=== PATIENT | male | born 1955 | race Caucasian/White ===

== ENCOUNTER 2019-08-06 11:40 | Inpatient (IN) ==
[2019-08-06] MEDS ORDERED: ONDANSETRON 4 MG/2 ML VIAL IV PRN (15:29)
[2019-08-06] MEDS ORDERED: guaiFENesin/DM ER 600-30 MG TABLET PO PRN (15:29)
[2019-08-06] MEDS ORDERED: ACETAMINOPHEN 325 MG TABLET PO PRN (15:29)
[2019-08-06] MEDS ORDERED: FLUTICASONE 50 MCG NASAL SPRAY 16 GM BOTTLE BOTH NARES PRN (15:51)
[2019-08-06 16:09] LABS: Hematocrit 30.1 VOL% (42.0-52.0); Hemoglobin 10.2 GM/DL (14.0-18.0); Immature Granulocytes % 0.5 %; Immature Granulocytes Absolute 0.02 #; Lymphocytes # 0.3 10*3/uL (1.4-4.0); Lymphocytes % 7.3 % (21.2-54.2); Mean Corpuscular HGB Conc 33.9 GM/DL (32-36); Mean Platelet Volume 9.1 FL (9.6-12.0); Monocytes % 0.7 % (1.7-12.7); Neutrophils % 91.5 % (38.7-73.9); Platelet Count 158 T/CUMM (130-400); Red Blood Count 2.95 MC/CUMM (3.8-5.5); Red Cell Distribution Width 16.5 % (9.3-17.3); White Blood Count 4.1 T/CUMM (4-12)
[2019-08-06 16:20] LABS: INR 0.9; Partial Thromboplastin Time 30.8 SECS (20.8-36.0)
[2019-08-06 16:30] LABS: Albumin 3.2 G/DL (3.4-5.0); Bilirubin,Total 0.8 MG/DL (0.2-1.0); Calcium 8.4 MG/DL (8.5-10.1); Total Protein 6.3 G/DL (6.4-8.3)
[2019-08-06 16:43] LABS: Anisocytosis 1+; Lymphocytes 5 % (20-55); Macrocytosis 1+; Platelet Estimate Normal; Polychromasia Slight; Segmented Neutrophils 95 % (50-85); Total Cells Counted 100
[2019-08-06] MEDS: LEVOFLOXACIN INJ 750 MG in PREMIX 1 EACH IV SCH (17:02)
[2019-08-06] MEDS: FUROSEMIDE 40 MG/4 ML VIAL IV SCH (17:02)
[2019-08-06] MEDS: LORazepam 1 MG TABLET PO PRN (18:33)
[2019-08-06] MEDS ORDERED: MORPHINE 4 MG/1 ML VIAL IV ONE (20:24)
[2019-08-06] MEDS: CHOLECALCIFEROL 400 UNIT TABLET PO SCH (20:45)
[2019-08-06] MEDS: CALCIUM (CARBONATE) 600 MG TABLET PO SCH (20:45)
[2019-08-07] MEDS: LORazepam 1 MG TABLET PO PRN ×2 (04:02→14:12)
[2019-08-07] MEDS: oxyCODONE IR 5 MG TABLET PO PRN ×2 (04:02→13:10)
[2019-08-07 05:36] LABS: Hematocrit 28.3 VOL% (42.0-52.0); Hemoglobin 9.8 GM/DL (14.0-18.0); Immature Granulocytes % 0.4 %; Immature Granulocytes Absolute 0.02 #; Lymphocytes # 0.5 10*3/uL (1.4-4.0); Lymphocytes % 9.5 % (21.2-54.2); Mean Corpuscular HGB Conc 34.6 GM/DL (32-36); Mean Corpuscular Volume 102.5 FL (87-102); Mean Platelet Volume 9.3 FL (9.6-12.0); Monocytes % 7.3 % (1.7-12.7); Neutrophils % 82.8 % (38.7-73.9); Platelet Count 170 T/CUMM (130-400); Red Blood Count 2.76 MC/CUMM (3.8-5.5); Red Cell Distribution Width 16.7 % (9.3-17.3)
[2019-08-07 06:03] LABS: Calcium 8.3 MG/DL (8.5-10.1); Osmolality,Calculated 275.8 MOS/KG (273-304)
[2019-08-07] MEDS ORDERED: LOSARTAN 50 MG TABLET PO SCH (09:00)
[2019-08-07] MEDS: FUROSEMIDE 40 MG/4 ML VIAL IV SCH (09:21)
[2019-08-07] MEDS: PANTOPRAZOLE 40 MG TABLET PO SCH (09:21)
[2019-08-07] MEDS: CALCIUM (CARBONATE) 600 MG TABLET PO SCH ×2 (09:21→20:16)
[2019-08-07] MEDS: CHOLECALCIFEROL 400 UNIT TABLET PO SCH ×2 (09:21→20:16)
[2019-08-07] MEDS: SERTRALINE 50 MG TABLET PO SCH (09:21)
[2019-08-07 09:50] LABS: Eosinophils,Pleural Fluid 2 %; Lymphocytes,Pleural Fluid 4 %; Monocytes,Pleural Fluid 3 %; Neutrophils,Pleural Fluid 91 %
[2019-08-07 09:58] LABS: RBC,Pleural Fluid > 100000 T/CUMM
[2019-08-07] MEDS: ALBUTEROL/IPRATROPIUM 3 ML NEB RESP TX SCH ×2 (13:09→21:00)
[2019-08-07] MEDS ORDERED: SODIUM CHLORIDE 0.9% 1,000 ML IV ONE (14:30)
[2019-08-07] MEDS: LEVOFLOXACIN INJ 750 MG in PREMIX 1 EACH IV SCH (16:17)
[2019-08-08] MEDS: oxyCODONE IR 5 MG TABLET PO PRN ×4 (00:39→23:45)
[2019-08-08] MEDS: ALBUTEROL/IPRATROPIUM 3 ML NEB RESP TX SCH ×4 (01:20→19:37)
[2019-08-08 04:53] LABS: Basophils % 0.2 % (0.0-0.8); Eosinophils % 0.2 % (0.00-10.9); Hematocrit 27.4 VOL% (42.0-52.0); Hemoglobin 9.4 GM/DL (14.0-18.0); Immature Granulocytes % 0.5 %; Immature Granulocytes Absolute 0.02 #; Lymphocytes # 0.7 10*3/uL (1.4-4.0); Lymphocytes % 15.9 % (21.2-54.2); Mean Corpuscular HGB Conc 34.3 GM/DL (32-36); Mean Platelet Volume 9.5 FL (9.6-12.0); Monocytes % 9.1 % (1.7-12.7); Neutrophils % 74.1 % (38.7-73.9); Platelet Count 152 T/CUMM (130-400); Red Blood Count 2.66 MC/CUMM (3.8-5.5); Red Cell Distribution Width 16.9 % (9.3-17.3); White Blood Count 4.1 T/CUMM (4-12)
[2019-08-08 05:54] LABS: Folate 15.2 NG/ML (5.4-24.0)
[2019-08-08] MEDS: SERTRALINE 50 MG TABLET PO SCH (08:30)
[2019-08-08] MEDS: CHOLECALCIFEROL 400 UNIT TABLET PO SCH ×2 (08:30→20:00)
[2019-08-08] MEDS: PANTOPRAZOLE 40 MG TABLET PO SCH (08:30)
[2019-08-08] MEDS: CALCIUM (CARBONATE) 600 MG TABLET PO SCH ×2 (08:30→19:59)
[2019-08-08] MEDS ORDERED: CYANOCOBALAMIN 500 MCG TABLET PO SCH (09:00)
[2019-08-08] MEDS ORDERED: PHENOL 1.4% THROAT SPRAY 177 ML BOTTLE PO PRN (09:47)
[2019-08-08] MEDS: CYANOCOBALAMIN 1000 MCG/1 ML VIAL SUBCUT SCH (11:15)
[2019-08-08] MEDS: LORazepam 1 MG TABLET PO PRN ×2 (11:48→19:59)
[2019-08-08 15:47] LABS: Total Protein,Body Fluid 3.7 G/DL
[2019-08-08] MEDS: LEVOFLOXACIN INJ 750 MG in PREMIX 1 EACH IV SCH (16:02)
[2019-08-08 20:46] LABS: RBC,Pleural Fluid > 100000 T/CUMM
[2019-08-08 21:28] LABS: Lymphocytes,Pleural Fluid 18 %; Monocytes,Pleural Fluid 2 %; Neutrophils,Pleural Fluid 80 %
[2019-08-09] MEDS: ALBUTEROL/IPRATROPIUM 3 ML NEB RESP TX SCH ×2 (02:17→07:21)
[2019-08-09] MEDS: CALCIUM (CARBONATE) 600 MG TABLET PO SCH (08:45)
[2019-08-09] MEDS: CHOLECALCIFEROL 400 UNIT TABLET PO SCH (08:45)
[2019-08-09] MEDS: SERTRALINE 50 MG TABLET PO SCH (08:45)
[2019-08-09] MEDS: PANTOPRAZOLE 40 MG TABLET PO SCH (08:45)
[2019-08-09] MEDS: CYANOCOBALAMIN 1000 MCG/1 ML VIAL SUBCUT SCH (08:46)
[2019-08-09] MEDS: LORazepam 1 MG TABLET PO PRN (08:52)
[2019-08-09] MEDS: oxyCODONE IR 5 MG TABLET PO PRN (08:53)
[2019-08-09] MEDS ORDERED: LORazepam 1 MG TABLET PO PRN (09:05)
[2019-08-09 11:55] VITALS: BP 133/80
[2019-08-09] MEDS ORDERED: METOPROLOL TARTRATE 25 MG TABLET PO SCH (21:00)
[2019-08-10] MEDS ORDERED: LEVOTHYROXINE 50 MCG TABLET PO SCH (06:30)
== END 2019-08-09 12:43 | disposition home or self-care (01) | DRG 186 ==
LOC: N.4E → OBSVTOIN 14:20 → SUATTDRO 14:20
PROVIDERS: ADMIT Internal Medicine; ATTEND Internal Medicine

== ENCOUNTER 2019-08-11 09:45 | Inpatient (IN) ==
[2019-08-11 10:10] LABS: Basophils % 0.1 % (0.0-0.8); Eosinophils % 0.4 % (0.00-10.9); Hemoglobin 10.5 GM/DL (14.0-18.0); Immature Granulocytes % 0.6 %; Immature Granulocytes Absolute 0.04 #; Lymphocytes # 0.5 10*3/uL (1.4-4.0); Lymphocytes % 6.6 % (21.2-54.2); Mean Corpuscular Volume 102.4 FL (87-102); Mean Platelet Volume 9.3 FL (9.6-12.0); Monocytes % 8.1 % (1.7-12.7); Neutrophils % 84.2 % (38.7-73.9); Platelet Count 226 T/CUMM (130-400); Red Blood Count 2.93 MC/CUMM (3.8-5.5); White Blood Count 7.1 T/CUMM (4-12)
[2019-08-11 10:21] LABS: INR 0.9; PT Patient Result 9.7 SECS (9.6-12.2); Partial Thromboplastin Time 30.1 SECS (20.8-36.0)
[2019-08-11 10:41] LABS: Albumin 2.5 G/DL (3.4-5.0); Bilirubin,Total 0.5 MG/DL (0.2-1.0); Calcium 8.6 MG/DL (8.5-10.1); Osmolality,Calculated 269.7 MOS/KG (273-304)
[2019-08-11] MEDS ORDERED: VANCOMYCIN INJ 1,000 MG in SODIUM CHLORIDE 0.9% 250 ML IV STA (11:21)
[2019-08-11] MEDS ORDERED: MEROPENEM 500 MG in SODIUM CHLORIDE 0.9% 100 ML IV ONE (11:29)
[2019-08-11] MEDS ORDERED: FLUTICASONE 50 MCG NASAL SPRAY 16 GM BOTTLE BOTH NARES PRN (13:00)
[2019-08-11] MEDS ORDERED: guaiFENesin/DM ER 600-30 MG TABLET PO PRN (13:01)
[2019-08-11] MEDS ORDERED: ONDANSETRON 4 MG/2 ML VIAL IV PRN (13:01)
[2019-08-11] MEDS ORDERED: MAGNESIUM SULF RIDER 2 GM in PREMIX 1 EACH IV PRN (13:01)
[2019-08-11] MEDS ORDERED: MAGNESIUM SULF RIDER 4 GM in PREMIX 1 EACH IV PRN (13:01)
[2019-08-11] MEDS ORDERED: SODIUM CHLORIDE 0.9% 1,000 ML IV SCH (13:30)
[2019-08-11] MEDS ORDERED: MEROPENEM 500 MG in SODIUM CHLORIDE 0.9% 100 ML IV SCH (13:30)
[2019-08-11] MEDS ORDERED: diphenhydrAMINE 50 MG/1 ML VIAL IV ONE (15:07)
[2019-08-11] MEDS ORDERED: VANCOMYCIN INJ 500 MG in SODIUM CHLORIDE 0.9% 100 ML IV ONE (16:00)
[2019-08-11] MEDS: LORazepam 1 MG TABLET PO PRN ×2 (17:29→22:40)
[2019-08-11] MEDS: CALCIUM (CARBONATE) 600 MG TABLET PO SCH (21:02)
[2019-08-11] MEDS: MORPHINE 4 MG/1 ML VIAL IV PRN (21:02)
[2019-08-11] MEDS: CHOLECALCIFEROL 400 UNIT TABLET PO SCH (21:02)
[2019-08-11] MEDS: MEROPENEM 500 MG in SODIUM CHLORIDE 0.9% 100 ML IV SCH (21:03)
[2019-08-12] MEDS: MORPHINE 4 MG/1 ML VIAL IV PRN ×3 (01:38→17:46)
[2019-08-12] MEDS: MEROPENEM 500 MG in SODIUM CHLORIDE 0.9% 100 ML IV SCH ×4 (02:47→20:48)
[2019-08-12 05:04] LABS: Eosinophils % 0.2 % (0.00-10.9); Hematocrit 31.5 VOL% (42.0-52.0); Hemoglobin 10.5 GM/DL (14.0-18.0); Immature Granulocytes % 0.6 %; Immature Granulocytes Absolute 0.04 #; Lymphocytes # 0.5 10*3/uL (1.4-4.0); Lymphocytes % 8.6 % (21.2-54.2); Mean Corpuscular HGB Conc 33.3 GM/DL (32-36); Mean Platelet Volume 9.2 FL (9.6-12.0); Monocytes % 10.6 % (1.7-12.7); Platelet Count 192 T/CUMM (130-400); Red Blood Count 3.03 MC/CUMM (3.8-5.5); White Blood Count 6.3 T/CUMM (4-12)
[2019-08-12 05:27] LABS: Calcium 8.4 MG/DL (8.5-10.1); Osmolality,Calculated 268.7 MOS/KG (273-304)
[2019-08-12] MEDS: LEVOTHYROXINE 50 MCG TABLET PO SCH (05:40)
[2019-08-12] MEDS: LORazepam 1 MG TABLET PO PRN (05:40)
[2019-08-12] MEDS: CHOLECALCIFEROL 400 UNIT TABLET PO SCH ×2 (09:41→20:49)
[2019-08-12] MEDS: BISACODYL 5 MG TABLET PO SCH (09:41)
[2019-08-12] MEDS: PANTOPRAZOLE 40 MG TABLET PO SCH (09:41)
[2019-08-12] MEDS: SERTRALINE 50 MG TABLET PO SCH (09:41)
[2019-08-12] MEDS: CALCIUM (CARBONATE) 600 MG TABLET PO SCH ×2 (09:41→20:49)
[2019-08-12] MEDS: VANCOMYCIN INJ 1,500 MG in SODIUM CHLORIDE 0.9% 500 ML IV SCH (10:30)
[2019-08-12] MEDS ORDERED: FUROSEMIDE 40 MG/4 ML VIAL IV ONE (15:34)
[2019-08-12] MEDS: predniSONE 20 MG TABLET PO SCH (17:31)
[2019-08-12] MEDS: oxyCODONE IR 5 MG TABLET PO PRN (21:39)
[2019-08-13] MEDS: MEROPENEM 500 MG in SODIUM CHLORIDE 0.9% 100 ML IV SCH ×4 (03:29→20:35)
[2019-08-13] MEDS: VANCOMYCIN INJ 1,500 MG in SODIUM CHLORIDE 0.9% 500 ML IV SCH ×2 (04:18→22:51)
[2019-08-13 05:14] LABS: Hemoglobin 9.9 GM/DL (14.0-18.0); Immature Granulocytes Absolute 0.05 #; Lymphocytes # 0.4 10*3/uL (1.4-4.0); Lymphocytes % 7.9 % (21.2-54.2); Mean Corpuscular HGB Conc 34.1 GM/DL (32-36); Mean Corpuscular Volume 102.8 FL (87-102); Mean Platelet Volume 9.4 FL (9.6-12.0); Monocytes % 4.4 % (1.7-12.7); Neutrophils % 86.7 % (38.7-73.9); Platelet Count 168 T/CUMM (130-400); Red Blood Count 2.82 MC/CUMM (3.8-5.5); Red Cell Distribution Width 15.7 % (9.3-17.3); White Blood Count 4.8 T/CUMM (4-12)
[2019-08-13 05:30] LABS: Calcium 8.1 MG/DL (8.5-10.1); Osmolality,Calculated 271.5 MOS/KG (273-304)
[2019-08-13] MEDS: LEVOTHYROXINE 50 MCG TABLET PO SCH (06:37)
[2019-08-13] MEDS: CHOLECALCIFEROL 400 UNIT TABLET PO SCH ×2 (08:59→20:35)
[2019-08-13] MEDS: BISACODYL 5 MG TABLET PO SCH (09:00)
[2019-08-13] MEDS: predniSONE 20 MG TABLET PO SCH (09:00)
[2019-08-13] MEDS: PANTOPRAZOLE 40 MG TABLET PO SCH (09:00)
[2019-08-13] MEDS: SERTRALINE 50 MG TABLET PO SCH (09:00)
[2019-08-13] MEDS: CALCIUM (CARBONATE) 600 MG TABLET PO SCH ×2 (09:00→20:35)
[2019-08-13] MEDS ORDERED: DEXAMETHASONE 10 MG/1 ML VIAL IV ONE (09:02)
[2019-08-13] MEDS: MORPHINE 4 MG/1 ML VIAL IV PRN (09:17)
[2019-08-13] MEDS ORDERED: GRANISETRON 1 MG/1 ML VIAL IV SCH (09:30)
[2019-08-13] MEDS ORDERED: GEMCITABINE IV ONE (10:00)
[2019-08-13] MEDS ORDERED: SODIUM CHLORIDE 0.9% IV ONE (10:00)
[2019-08-13] MEDS ORDERED: GRANISETRON 1 MG/1 ML VIAL IV ONE (12:00)
[2019-08-13] MEDS: LORazepam 1 MG TABLET PO PRN (18:27)
[2019-08-13] MEDS: oxyCODONE IR 5 MG TABLET PO PRN (20:36)
[2019-08-14] MEDS: LORazepam 1 MG TABLET PO PRN (02:53)
[2019-08-14] MEDS: oxyCODONE IR 5 MG TABLET PO PRN ×3 (02:54→23:46)
[2019-08-14] MEDS: MEROPENEM 500 MG in SODIUM CHLORIDE 0.9% 100 ML IV SCH ×4 (03:50→21:12)
[2019-08-14 06:06] LABS: Basophils % 0.1 % (0.0-0.8); Hematocrit 31.9 VOL% (42.0-52.0); Hemoglobin 10.6 GM/DL (14.0-18.0); Immature Granulocytes % 0.7 %; Immature Granulocytes Absolute 0.06 #; Lymphocytes # 0.6 10*3/uL (1.4-4.0); Lymphocytes % 6.7 % (21.2-54.2); Mean Corpuscular HGB Conc 33.2 GM/DL (32-36); Mean Corpuscular Volume 103.6 FL (87-102); Monocytes % 6.1 % (1.7-12.7); Neutrophils % 86.4 % (38.7-73.9); Platelet Count 198 T/CUMM (130-400); Red Blood Count 3.08 MC/CUMM (3.8-5.5); Red Cell Distribution Width 15.8 % (9.3-17.3); White Blood Count 8.9 T/CUMM (4-12)
[2019-08-14 06:14] LABS: INR 0.9; PT Patient Result 9.5 SECS (9.6-12.2)
[2019-08-14 06:20] LABS: Calcium 8.7 MG/DL (8.5-10.1); Osmolality,Calculated 270.7 MOS/KG (273-304)
[2019-08-14] MEDS: LEVOTHYROXINE 50 MCG TABLET PO SCH (07:09)
[2019-08-14] MEDS ORDERED: DIAZEPAM 5 MG TABLET PO ONE (08:42)
[2019-08-14] MEDS ORDERED: MIDAZOLAM 2 MG/2 ML VIAL IV ONE (10:00)
[2019-08-14] MEDS ORDERED: fentaNYL 100 MCG/2 ML VIAL IV ONE (10:00)
[2019-08-14] MEDS ORDERED: fentaNYL 100 MCG/2 ML VIAL ONE (10:44)
[2019-08-14] MEDS ORDERED: MIDAZOLAM 2 MG/2 ML VIAL ONE (10:45)
[2019-08-14] MEDS ORDERED: TISSUE ADHESIVE 1 EACH APPLICATOR TOP ONE (11:18)
[2019-08-14] MEDS: MORPHINE 4 MG/1 ML VIAL IV PRN ×3 (12:46→21:08)
[2019-08-14] MEDS: BISACODYL 5 MG TABLET PO SCH (12:48)
[2019-08-14] MEDS: predniSONE 20 MG TABLET PO SCH (12:49)
[2019-08-14] MEDS: SERTRALINE 50 MG TABLET PO SCH (12:49)
[2019-08-14] MEDS: CALCIUM (CARBONATE) 600 MG TABLET PO SCH ×2 (12:50→21:11)
[2019-08-14] MEDS: CHOLECALCIFEROL 400 UNIT TABLET PO SCH ×2 (12:50→21:11)
[2019-08-14] MEDS: PANTOPRAZOLE 40 MG TABLET PO SCH (12:50)
[2019-08-15] MEDS: MORPHINE 4 MG/1 ML VIAL IV PRN ×4 (02:07→21:58)
[2019-08-15] MEDS: MEROPENEM 500 MG in SODIUM CHLORIDE 0.9% 100 ML IV SCH ×4 (02:10→20:31)
[2019-08-15 04:16] LABS: Basophils % 0.1 % (0.0-0.8); Hematocrit 31.9 VOL% (42.0-52.0); Hemoglobin 11.1 GM/DL (14.0-18.0); Immature Granulocytes % 0.7 %; Immature Granulocytes Absolute 0.08 #; Lymphocytes # 0.4 10*3/uL (1.4-4.0); Lymphocytes % 3.5 % (21.2-54.2); Mean Corpuscular HGB Conc 34.8 GM/DL (32-36); Mean Corpuscular Volume 101.6 FL (87-102); Mean Platelet Volume 9.4 FL (9.6-12.0); Monocytes % 2.1 % (1.7-12.7); Neutrophils % 93.6 % (38.7-73.9); Platelet Count 196 T/CUMM (130-400); Red Blood Count 3.14 MC/CUMM (3.8-5.5); Red Cell Distribution Width 15.9 % (9.3-17.3); White Blood Count 12.2 T/CUMM (4-12)
[2019-08-15 04:44] LABS: Band Neutrophils 1 % (0-10); Lymphocytes 4 % (20-55); Segmented Neutrophils 95 % (50-85); Total Cells Counted 100
[2019-08-15 04:45] LABS: Anisocytosis 1+; Ovalocytes 1+; Platelet Estimate Normal
[2019-08-15 04:46] LABS: Calcium 8.1 MG/DL (8.5-10.1); Osmolality,Calculated 270.1 MOS/KG (273-304)
[2019-08-15] MEDS: LEVOTHYROXINE 50 MCG TABLET PO SCH (06:16)
[2019-08-15] MEDS: BISACODYL 5 MG TABLET PO SCH (09:43)
[2019-08-15] MEDS: CALCIUM (CARBONATE) 600 MG TABLET PO SCH ×2 (09:43→20:31)
[2019-08-15] MEDS: CHOLECALCIFEROL 400 UNIT TABLET PO SCH ×2 (09:44→20:31)
[2019-08-15] MEDS: PANTOPRAZOLE 40 MG TABLET PO SCH (09:44)
[2019-08-15] MEDS: predniSONE 20 MG TABLET PO SCH (09:44)
[2019-08-15] MEDS: SERTRALINE 50 MG TABLET PO SCH (09:44)
[2019-08-15] MEDS: oxyCODONE IR 5 MG TABLET PO PRN ×2 (09:45→19:19)
[2019-08-15] MEDS: LORazepam 1 MG TABLET PO PRN (16:33)
[2019-08-16] MEDS: MEROPENEM 500 MG in SODIUM CHLORIDE 0.9% 100 ML IV SCH ×4 (02:50→20:43)
[2019-08-16 05:34] LABS: Basophils % 0.1 % (0.0-0.8); Hematocrit 30.1 VOL% (42.0-52.0); Hemoglobin 10.1 GM/DL (14.0-18.0); Immature Granulocytes % 1.1 %; Immature Granulocytes Absolute 0.16 #; Lymphocytes # 0.5 10*3/uL (1.4-4.0); Lymphocytes % 3.5 % (21.2-54.2); Mean Corpuscular HGB Conc 33.6 GM/DL (32-36); Mean Corpuscular Volume 103.4 FL (87-102); Mean Platelet Volume 9.3 FL (9.6-12.0); Monocytes % 0.5 % (1.7-12.7); Neutrophils % 94.8 % (38.7-73.9); Platelet Count 182 T/CUMM (130-400); Red Blood Count 2.91 MC/CUMM (3.8-5.5); Red Cell Distribution Width 15.5 % (9.3-17.3); White Blood Count 14.7 T/CUMM (4-12)
[2019-08-16] MEDS: LEVOTHYROXINE 50 MCG TABLET PO SCH (05:43)
[2019-08-16 05:49] LABS: Calcium 8.3 MG/DL (8.5-10.1); Osmolality,Calculated 274.2 MOS/KG (273-304)
[2019-08-16 06:05] LABS: Lymphocytes 2 % (20-55); Segmented Neutrophils 97 % (50-85); Total Cells Counted 100
[2019-08-16 06:06] LABS: Hypochromasia 1+; Ovalocytes Slight; Platelet Estimate Adequate
[2019-08-16] MEDS ORDERED: SODIUM CHLORIDE 0.9% 1,000 ML IV SCH (08:00)
[2019-08-16] MEDS ORDERED: SODIUM CHLORIDE 0.9% 500 ML IV SCH (08:45)
[2019-08-16] MEDS: predniSONE 20 MG TABLET PO SCH (09:11)
[2019-08-16] MEDS: SERTRALINE 50 MG TABLET PO SCH (09:11)
[2019-08-16] MEDS: BISACODYL 5 MG TABLET PO SCH (09:11)
[2019-08-16] MEDS: CHOLECALCIFEROL 400 UNIT TABLET PO SCH ×2 (09:11→20:43)
[2019-08-16] MEDS: CALCIUM (CARBONATE) 600 MG TABLET PO SCH ×2 (09:11→20:43)
[2019-08-16] MEDS: PANTOPRAZOLE 40 MG TABLET PO SCH (09:11)
[2019-08-16] MEDS: oxyCODONE IR 5 MG TABLET PO PRN ×3 (09:26→22:29)
[2019-08-16] MEDS: MORPHINE 4 MG/1 ML VIAL IV PRN (17:12)
[2019-08-16] MEDS: LORazepam 1 MG TABLET PO PRN (20:43)
[2019-08-17] MEDS: MORPHINE 4 MG/1 ML VIAL IV PRN ×3 (03:03→20:44)
[2019-08-17] MEDS: MEROPENEM 500 MG in SODIUM CHLORIDE 0.9% 100 ML IV SCH ×4 (03:55→20:52)
[2019-08-17 05:03] LABS: Basophils % 0.1 % (0.0-0.8); Hematocrit 27.4 VOL% (42.0-52.0); Hemoglobin 9.2 GM/DL (14.0-18.0); Immature Granulocytes % 1.2 %; Immature Granulocytes Absolute 0.13 #; Lymphocytes # 0.6 10*3/uL (1.4-4.0); Lymphocytes % 5.6 % (21.2-54.2); Mean Corpuscular HGB Conc 33.6 GM/DL (32-36); Mean Platelet Volume 9.6 FL (9.6-12.0); Monocytes % 0.7 % (1.7-12.7); Neutrophils % 92.4 % (38.7-73.9); Platelet Count 158 T/CUMM (130-400); Red Blood Count 2.61 MC/CUMM (3.8-5.5); Red Cell Distribution Width 15.3 % (9.3-17.3); White Blood Count 10.5 T/CUMM (4-12)
[2019-08-17 05:42] LABS: Band Neutrophils 9 % (0-10); Lymphocytes 2 % (20-55); Segmented Neutrophils 89 % (50-85); Total Cells Counted 100
[2019-08-17 05:43] LABS: Macrocytosis Slight; Ovalocytes Slight; Platelet Estimate Adequate
[2019-08-17 05:45] LABS: Calcium 8.5 MG/DL (8.5-10.1); Osmolality,Calculated 269.5 MOS/KG (273-304)
[2019-08-17] MEDS: LORazepam 1 MG TABLET PO PRN ×3 (07:27→20:43)
[2019-08-17] MEDS: LEVOTHYROXINE 50 MCG TABLET PO SCH (07:28)
[2019-08-17] MEDS: PANTOPRAZOLE 40 MG TABLET PO SCH (08:55)
[2019-08-17] MEDS: CALCIUM (CARBONATE) 600 MG TABLET PO SCH ×2 (08:55→20:44)
[2019-08-17] MEDS: predniSONE 20 MG TABLET PO SCH (08:55)
[2019-08-17] MEDS: SERTRALINE 50 MG TABLET PO SCH (08:55)
[2019-08-17] MEDS: CHOLECALCIFEROL 400 UNIT TABLET PO SCH ×2 (08:55→20:49)
[2019-08-17] MEDS: BISACODYL 5 MG TABLET PO SCH (08:55)
[2019-08-17] MEDS: SODIUM CHLORIDE 0.9% 1,000 ML IV SCH (14:30)
[2019-08-17] MEDS: oxyCODONE IR 5 MG TABLET PO PRN (15:29)
[2019-08-17] MEDS ORDERED: ENOXAPARIN 30 MG/0.3 ML SYRINGE SUBCUT SCH (21:00)
[2019-08-18] MEDS: MEROPENEM 500 MG in SODIUM CHLORIDE 0.9% 100 ML IV SCH ×2 (02:45→08:36)
[2019-08-18] MEDS: LORazepam 1 MG TABLET PO PRN ×4 (04:01→22:39)
[2019-08-18] MEDS: oxyCODONE IR 5 MG TABLET PO PRN ×2 (04:01→17:49)
[2019-08-18] MEDS: LEVOTHYROXINE 50 MCG TABLET PO SCH (05:40)
[2019-08-18] MEDS: SODIUM CHLORIDE 0.9% 1,000 ML IV SCH ×2 (05:44→17:49)
[2019-08-18 05:51] LABS: Bilirubin,Total 0.8 MG/DL (0.2-1.0); Calcium 8.6 MG/DL (8.5-10.1); Osmolality,Calculated 273.8 MOS/KG (273-304); Total Protein 5.3 G/DL (6.4-8.3)
[2019-08-18] MEDS: predniSONE 20 MG TABLET PO SCH (08:37)
[2019-08-18] MEDS: PANTOPRAZOLE 40 MG TABLET PO SCH (08:37)
[2019-08-18] MEDS: CALCIUM (CARBONATE) 600 MG TABLET PO SCH ×2 (08:37→20:56)
[2019-08-18] MEDS: CHOLECALCIFEROL 400 UNIT TABLET PO SCH ×2 (08:37→20:56)
[2019-08-18] MEDS: SERTRALINE 50 MG TABLET PO SCH (08:37)
[2019-08-18] MEDS: BISACODYL 5 MG TABLET PO SCH (08:37)
[2019-08-18] MEDS: MORPHINE 4 MG/1 ML VIAL IV PRN ×3 (08:45→22:52)
[2019-08-18] MEDS: ENOXAPARIN 40 MG/0.4 ML SYRINGE SUBCUT SCH (20:56)
[2019-08-19] MEDS: LORazepam 1 MG TABLET PO PRN ×3 (03:28→21:42)
[2019-08-19] MEDS: MORPHINE 4 MG/1 ML VIAL IV PRN ×5 (03:38→20:16)
[2019-08-19 06:24] LABS: Basophils % 0.2 % (0.0-0.8); Hematocrit 26.8 VOL% (42.0-52.0); Immature Granulocytes % 5.9 %; Immature Granulocytes Absolute 0.48 #; Lymphocytes # 0.8 10*3/uL (1.4-4.0); Lymphocytes % 10.2 % (21.2-54.2); Mean Corpuscular HGB Conc 33.6 GM/DL (32-36); Mean Corpuscular Volume 103.5 FL (87-102); Mean Platelet Volume 9.7 FL (9.6-12.0); Monocytes % 4.9 % (1.7-12.7); NRBC # 0.15 10*3/uL; Neutrophils % 78.8 % (38.7-73.9); Platelet Count 138 T/CUMM (130-400); Red Blood Count 2.59 MC/CUMM (3.8-5.5); Red Cell Distribution Width 15.5 % (9.3-17.3); White Blood Count 8.1 T/CUMM (4-12)
[2019-08-19] MEDS: SODIUM CHLORIDE 0.9% 1,000 ML IV SCH (06:37)
[2019-08-19 06:45] LABS: Calcium 8.6 MG/DL (8.5-10.1); Osmolality,Calculated 276.5 MOS/KG (273-304)
[2019-08-19] MEDS: LEVOTHYROXINE 50 MCG TABLET PO SCH (06:51)
[2019-08-19 07:08] LABS: Band Neutrophils 1 % (0-10); Hypochromasia 1+; Lymphocytes 9 % (20-55); Macrocytosis Slight; Myelocytes 1 %; Nucleated Red Blood Cells 1 (0-5); Segmented Neutrophils 88 % (50-85); Total Cells Counted 100
[2019-08-19 07:09] LABS: Ovalocytes Slight; Platelet Estimate Adequate
[2019-08-19] MEDS: BISACODYL 5 MG TABLET PO SCH (08:23)
[2019-08-19] MEDS: PANTOPRAZOLE 40 MG TABLET PO SCH (08:24)
[2019-08-19] MEDS: CHOLECALCIFEROL 400 UNIT TABLET PO SCH ×2 (08:24→21:42)
[2019-08-19] MEDS: CALCIUM (CARBONATE) 600 MG TABLET PO SCH ×2 (08:24→20:15)
[2019-08-19] MEDS: SERTRALINE 50 MG TABLET PO SCH (08:24)
[2019-08-19] MEDS: predniSONE 20 MG TABLET PO SCH (08:24)
[2019-08-19] MEDS: ALBUTEROL 2.5 MG/3 ML NEB RESP TX PRN ×2 (11:06→16:30)
[2019-08-19] MEDS: ENOXAPARIN 40 MG/0.4 ML SYRINGE SUBCUT SCH (20:16)
[2019-08-20] MEDS: MORPHINE 4 MG/1 ML VIAL IV PRN ×4 (00:01→14:50)
[2019-08-20] MEDS: LORazepam 1 MG TABLET PO PRN ×4 (05:34→19:44)
[2019-08-20] MEDS: LEVOTHYROXINE 50 MCG TABLET PO SCH (05:38)
[2019-08-20 05:57] LABS: Basophils % 0.2 % (0.0-0.8); Hematocrit 26.5 VOL% (42.0-52.0); Hemoglobin 8.9 GM/DL (14.0-18.0); Immature Granulocytes % 6.3 %; Immature Granulocytes Absolute 0.67 #; Lymphocytes # 1.1 10*3/uL (1.4-4.0); Mean Corpuscular HGB Conc 33.6 GM/DL (32-36); Mean Corpuscular Volume 103.5 FL (87-102); Mean Platelet Volume 9.7 FL (9.6-12.0); Monocytes % 4.2 % (1.7-12.7); Neutrophils % 79.3 % (38.7-73.9); Platelet Count 128 T/CUMM (130-400); Red Blood Count 2.56 MC/CUMM (3.8-5.5); Red Cell Distribution Width 15.5 % (9.3-17.3); White Blood Count 10.7 T/CUMM (4-12)
[2019-08-20 06:16] LABS: Calcium 9.3 MG/DL (8.5-10.1); Osmolality,Calculated 284.7 MOS/KG (273-304)
[2019-08-20 07:07] LABS: Anisocytosis 1+; Band Neutrophils 4 % (0-10); Lymphocytes 9 % (20-55); Macrocytosis 1+; Metamyelocytes 2 %; Nucleated Red Blood Cells 2 (0-5); Platelet Estimate Decreased; Segmented Neutrophils 81 % (50-85); Total Cells Counted 100
[2019-08-20] MEDS ORDERED: SODIUM POLYSTYRENE SULFATE 15 GM/60 ML BOTTLE PO STA (09:12)
[2019-08-20] MEDS: PANTOPRAZOLE 40 MG TABLET PO SCH (09:23)
[2019-08-20] MEDS: BISACODYL 5 MG TABLET PO SCH (09:23)
[2019-08-20] MEDS: CALCIUM (CARBONATE) 600 MG TABLET PO SCH ×2 (09:23→21:37)
[2019-08-20] MEDS: SERTRALINE 50 MG TABLET PO SCH (09:23)
[2019-08-20] MEDS: predniSONE 20 MG TABLET PO SCH (09:23)
[2019-08-20] MEDS: CHOLECALCIFEROL 400 UNIT TABLET PO SCH ×2 (09:23→21:37)
[2019-08-20] MEDS: MORPHINE ER 30 MG TABLET PO SCH ×2 (11:04→21:38)
[2019-08-20] MEDS ORDERED: CALCIUM GLUCONATE 1,000 MG in SODIUM CHLORIDE 0.9% 100 ML IV ONE (18:19)
[2019-08-20] MEDS ORDERED: INSULIN REGULAR 100 UNIT/ML IV ONE (18:22)
[2019-08-20] MEDS ORDERED: DEXTROSE 10% 250 ML BAG IV ONE (18:28)
[2019-08-20] MEDS ORDERED: SODIUM BICARBONATE 50 MEQ/50 ML VIAL IV ONE (18:29)
[2019-08-20] MEDS ORDERED: SODIUM CHLORIDE 0.9% 500 ML IV SCH (18:30)
[2019-08-20] MEDS: ENOXAPARIN 40 MG/0.4 ML SYRINGE SUBCUT SCH (21:38)
[2019-08-21] MEDS: LORazepam 1 MG TABLET PO PRN (01:23)
[2019-08-21] MEDS: MORPHINE 4 MG/1 ML VIAL IV PRN ×7 (03:46→19:34)
[2019-08-21 05:36] LABS: Basophils % 0.3 % (0.0-0.8); Hematocrit 26.1 VOL% (42.0-52.0); Hemoglobin 8.6 GM/DL (14.0-18.0); Immature Granulocytes % 5.8 %; Immature Granulocytes Absolute 0.65 #; Lymphocytes # 0.9 10*3/uL (1.4-4.0); Lymphocytes % 8.3 % (21.2-54.2); Mean Corpuscular Volume 106.1 FL (87-102); Mean Platelet Volume 9.7 FL (9.6-12.0); Monocytes % 4.1 % (1.7-12.7); NRBC # 0.91 10*3/uL; Neutrophils % 81.5 % (38.7-73.9); Red Blood Count 2.46 MC/CUMM (3.8-5.5); Red Cell Distribution Width 15.8 % (9.3-17.3); White Blood Count 11.2 T/CUMM (4-12)
[2019-08-21 05:51] LABS: Calcium 9.9 MG/DL (8.5-10.1); Osmolality,Calculated 286.7 MOS/KG (273-304)
[2019-08-21 06:04] LABS: Platelet Count 106 T/CUMM (130-400)
[2019-08-21 06:16] LABS: Band Neutrophils 8 % (0-10); Lymphocytes 8 % (20-55); Nucleated Red Blood Cells 4 (0-5); Segmented Neutrophils 79 % (50-85); Total Cells Counted 100
[2019-08-21 06:17] LABS: Hypochromasia 1+; Macrocytosis Slight; Platelet Estimate Decreased; Polychromasia Slight
[2019-08-21] MEDS: LEVOTHYROXINE 50 MCG TABLET PO SCH (06:40)
[2019-08-21] MEDS: LORazepam 2 MG/1 ML VIAL IV PRN ×9 (06:42→20:15)
[2019-08-21] MEDS: CALCIUM (CARBONATE) 600 MG TABLET PO SCH (10:17)
[2019-08-21] MEDS: BISACODYL 5 MG TABLET PO SCH (10:17)
[2019-08-21] MEDS: PANTOPRAZOLE 40 MG TABLET PO SCH (10:18)
[2019-08-21] MEDS: SERTRALINE 50 MG TABLET PO SCH (10:18)
[2019-08-21] MEDS: CHOLECALCIFEROL 400 UNIT TABLET PO SCH (10:18)
[2019-08-21] MEDS: MORPHINE ER 30 MG TABLET PO SCH (10:18)
[2019-08-21] MEDS: predniSONE 20 MG TABLET PO SCH (10:18)
[2019-08-21 23:11] VITALS: BP 68/56
[2019-08-22] MEDS: ENOXAPARIN 40 MG/0.4 ML SYRINGE SUBCUT SCH (04:56)
== END 2019-08-21 23:46 | disposition expired | DRG 542 ==
LOC: N.ED 09:45 → N.EDINP 13:01 → SUATTDRO 13:01 → SUPCPDRO 13:01 → N.EDINP 14:42 → N.4E 14:48
PROVIDERS: ADMIT Internal Medicine; ATTEND Internal Medicine